=== PATIENT | male | born 1965 | race Caucasian/White ===

== ENCOUNTER 2022-04-07 06:27 | Emergency (ER) | payer OTHER, SELFPAY ==
[2022-04-07 06:43] VITALS: BP 127/73; PULSE 71; RESP 20; TEMP 36.3; O2SAT 99
[2022-04-07 06:51] VITALS: RESP 20; O2SAT 99
[2022-04-07 07:29] VITALS: BP 108/70; PULSE 67; RESP 16; O2SAT 96
--- NOTE | 2022-04-07 07:30 | PC.NURSE ---
Report received from Coral MORRIS. Pt resting comfortably on stretcher with lights dimmed.
--- NOTE | 2022-04-07 07:31 | ED.GENADULT ---
HPI - General Adult General Chief complaint: Unspecified Stated complaint: back pain Time Seen by Provider: 04/07/22 07:31 Source: patient History of Present Illness HPI narrative: Patient came to the emergency room by ambulance patient was ambulatory to the police station this morning requesting to be brought to [facility] because he is called and usually when he gets cold his back hurts so bad because history of chronic back pain. Patient denies any fever, chills, nausea, vomiting, chest pain or shortness of breath. Basically patient needs a warm place to stay and until the cold to go away. Related Data Allergies Allergy/AdvReac Type Severity Reaction Status Date / Time No Known Allergies Allergy Unverified 07/18/17 22:49 Review of Systems Review of Systems: All systems reviewed & are unremarkable except as noted in HPI and below Exam Narrative: General appearance: Well-developed, well-nourished Skin: Normal color Head: Normocephalic, nontraumatic Eyes: Clear conjunctiva ENT: Oropharynx normal, ears normal, nose normal Neck: Supple, nontender Chest and respiratory: Airway patent, no respiratory distress, no accessory muscle use Heart: Regular rate/rhythm Abdomen: Soft, nontender, no organomegaly, quiet bowel sounds Vascular: Normal peripheral pulses, normal capillary refill. Musculoskeletal: Normal range of motion, nontender back Neurologic: Alert and oriented ?3, [employer] is normal as tested, no gross motor deficit Course Consultations Consultation #1: clinical administrative coordinator Date: 04/07/22 Time: 16:47 Vital Signs Vital signs: Vital Signs Temperature 36.3 C L 04/07/22 06:43 Pulse Rate 71 04/07/22 06:43 Respiratory Rate 20 04/07/22 06:43 Blood Pressure 127/73 04/07/22 06:43 Pulse Oximetry 99 04/07/22 06:43 Oxygen Delivery Room Air 04/07/22 06:43 Temperature 36.3 C L 04/07/22 06:43 Pulse Rate 67 04/07/22 09:31 Respiratory Rate 16 04/07/22 09:31 Blood Pressure 102/62 04/07/22 09:31 Pulse Oximetry 97 04/07/22 09:31 Oxygen Delivery Room Air 04/07/22 06:43 Medical Decision Making Vital Signs Vital Signs: Vital Signs Temperature 36.3 C L 04/07/22 06:43 Pulse Rate 71 04/07/22 06:43 Respiratory Rate 20 04/07/22 06:43 Blood Pressure 127/73 04/07/22 06:43 Pulse Oximetry 99 04/07/22 06:43 Oxygen Delivery Room Air 04/07/22 06:43 Temperature 36.3 C L 04/07/22 06:43 Pulse Rate 67 04/07/22 09:31 Respiratory Rate 16 04/07/22 09:31 Blood Pressure 102/62 04/07/22 09:31 Pulse Oximetry 97 04/07/22 09:31 Oxygen Delivery Room Air 04/07/22 06:43 Critical Care Time Critical Care Time Critical Care Time: No Discharge Plan Discharge Clinical Impression: Homelessness, Chronic back pain Patient Disposition: Other Condition: Improved Instructions: Antibiotic Form, Chronic Back Pain (DC) Additional Instructions: Return if symptoms are worsening , call your family physician for appointment, take Tylenol as as needed for aches and pain, continue home medications. Follow-up/Referrals: Viraj Kerr MD [Physician] - 04/09/22 UNKNOWN,DOCTOR [Primary Care Provider] -
[2022-04-07 09:31] VITALS: BP 102/62; PULSE 67; RESP 16; O2SAT 97
--- NOTE | 2022-04-07 15:32 | PC.NURSE ---
Care coordination called to come talk to patient regarding his plans for discharge. Patient is homeless.
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
--- NOTE | 2022-04-07 17:02 | PC.NURSE ---
Patient given meal and a pepsi.
--- NOTE | 2022-04-07 18:07 | PC.NURSE ---
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
== END 2022-04-07 18:09 | disposition other institution (70) ==
PROVIDERS: Emergency Provider Emergency Medicine
DX: G89.29 Other chronic pain (principal); M54.9 Dorsalgia, unspecified
CPT/HCPCS: 99281

== ENCOUNTER 2022-12-31 17:49 | Emergency (ER) | payer OTHER, SELFPAY ==
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
[2022-12-31 18:18] VITALS: BP 133/68; PULSE 70; RESP 18; TEMP 36.8; O2SAT 100
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
== END 2022-12-31 20:05 | disposition home or self-care (01) ==
LOC: ANHED 19:50
PROVIDERS: Emergency Provider Emergency Medicine
DX: M54.50 Low back pain, unspecified (principal)
CPT/HCPCS: 72100; 99283